=== PATIENT | male | born 1955 | race African-American/Black ===

== ENCOUNTER 2019-02-08 20:23 | Inpatient (IN) | payer OTHER ==
[~2019-02-08] VITALS: Ht 175.3 cm; Wt 77.2 kg
--- NOTE | ~2019-02-08 | ST ---
[place], [place] EXERCISE STRESS TEST REPORT NAME: BRIAN WU UNIT #: [id number] ROOM: 401 DOCTOR: TOYA KELLY MD BIRTHDATE: [birth year] DOS: 02/11/2019 LEXISCAN STRESS EKG REFERRING PHYSICIAN: Dr. Henriquez. INDICATION: Non-ST elevation myocardial infarction. DATE OF PROCEDURE: 02/11/2019. The patient underwent standard protocol Lexiscan stress EKG. The patient's baseline EKG showed normal sinus rhythm, nonspecific ST-T wave changes, and left ventricular hypertrophy. The patient's baseline heart rate 67 with a blood pressure 124/76. The patient's peak heart rate was 89 with a blood pressure 124/68. The patient had no chest pain, no new ischemic changes and no arrhythmias. SUMMARY OF FINDINGS: Unremarkable Lexiscan stress EKG. Please see separate report for perfusion scan imaging results. TOYA KELLY MD CM:STRESS:EXERCISE STRESS TEST REPORT [id number] TOYA KELLY MD
--- NOTE | ~2019-02-08 | EKG ---
[place], [place] ELECTROCARDIOGRAM REPORT NAME: BRIAN WU UNIT #: [id number] ROOM: 401 DOCTOR: JAVI DRAFT REPORT BIRTHDATE: [birth year] [facility] Test Date: 2019-02-08 Test Time: 23:27:36 Pat Name: BRIAN WU Department: Room: 401 Gender: M Custom Protection Officer: : 1955 Requested By: FAN SOTELO Order Number: [id number] Reading MD: Sindhu Good MD Measurements Intervals [place] Rate: 80 P: 55 SC: 139 QRS: -25 QRSD: 89 T: 209 QT: 383 QTc: 442 Interpretive Statements Sinus rhythm Ventricular premature complex Probable LVH with secondary repol abnrm Compared to ECG 11/18/2018 13:15:12 Ventricular premature complex(es) now present Sinus tachycardia no longer present Myocardial infarct finding no longer present Electronically Signed On 02-09-2019 12:30:54 PDT by Sindhu Good MD CM:EKGRPT:ELECTROCARDIOGRAM REPORT [id number] FAN CALDWELL DRAFT REPORT FAN SOTELO
--- NOTE | ~2019-02-08 | EKG ---
[place], [place] ELECTROCARDIOGRAM REPORT NAME: BRIAN WU UNIT #: [id number] ROOM: 401 DOCTOR: JAVI DRAFT REPORT BIRTHDATE: [birth year] [facility] Test Date: 2019-02-08 Test Time: 21:05:44 Pat Name: BRIAN WU Department: Room: 401 Gender: M Accounts Payable Manager: : 1955 Requested By: MIRNA TANG Order Number: [id number] Reading MD: Sindhu Good MD Measurements Intervals [place] Rate: 72 P: 61 [place]: 135 QRS: -40 QRSD: 103 T: 191 QT: 397 QTc: 435 Interpretive Statements Sinus rhythm Left anterior fascicular block LVH with secondary repolarization abnormality Probable anterior infarct, age indeterminate Compared to ECG 11/18/2018 13:15:12 Left anterior fascicular block now present Sinus tachycardia no longer present Myocardial infarct finding still present Electronically Signed On 02-09-2019 12:30:27 PDT by Sindhu Good MD CM:EKGRPT:ELECTROCARDIOGRAM REPORT [id number] MIRNA CALDWELL DRAFT REPORT MIRNA TANG MD
--- NOTE | ~2019-02-08 | EKG ---
[place], [place] ELECTROCARDIOGRAM REPORT NAME: BRIAN WU UNIT #: [id number] ROOM: 401 DOCTOR: JAVI DRAFT REPORT BIRTHDATE: [birth year] [facility] Test Date: 2019-02-09 Test Time: 01:56:09 Pat Name: BRIAN WU Department: Room: 401 Gender: M Skid Machine Operator: SS RESP : 1955 Requested By: FAN SOTELO Order Number: [id number] Reading MD: Sindhu Good MD Measurements Intervals [place] Rate: 76 P: 56 [place]: 137 QRS: -26 QRSD: 90 T: 209 QT: 406 QTc: 457 Interpretive Statements Sinus rhythm Ventricular premature complex Borderline left axis deviation Probable anteroseptal infarct, old Abnormal T, consider ischemia, diffuse leads Compared to ECG 11/18/2018 13:15:12 Ventricular premature complex(es) now present T-wave abnormality now present Possible ischemia now present Sinus tachycardia no longer present Left ventricular hypertrophy no longer present Early repolarization no longer present,Myocardial infarct finding still present Electronically Signed On 02-09-2019 12:31:50 PDT by Sindhu Good MD CM:EKGRPT:ELECTROCARDIOGRAM REPORT [id number] FAN CALDWELL DRAFT REPORT FAN SOTELO
[~2019-02-08 20:23] MED LIST: ALBUTEROL0.09 MG/A2 IH; DOXYCYCLINE HY100 M5 PO; IMDUR SA60 M1 PO; LASIX20 MG PO; LIPITOR80 MG PO; NKHM; PRINIVIL5 MG PO; ZITHROMAX Z PA250 MG PO
[2019-02-08 20:24] VITALS: BP 141/88
[2019-02-08 21:12] LABS: BASO % 0.3 % (0.0-1.0); EOS # 0.1 10*3/uL (0.0-0.4); EOS % 1.2 % (1.0-4.0); HEMATOCRIT 32.4 % (42.0-52.0); HEMOGLOBIN 9.8 g/dl (14.0-18.0); LYMPH # 1.7 10*3/uL (1.3-4.4); LYMPH % 26.5 % (27.0-41.0); MEAN CELL VOLUME 88.3 fl (80.0-94.0); MEAN CORPUSCULAR HGB 26.7 pg (27.0-31.0); MEAN CORPUSCULAR HGB CONC 30.2 g/dl (33.0-37.0); MEAN PLATELET VOLUME 11.5 fl (9.6-12.3); MONO # 0.7 10*3/uL (0.1-1.0); MONO % 10.3 % (3.0-9.0); NEUT # 3.9 10*3/uL (2.3-7.9); NEUT % 61.4 % (47.0-73.0); PLATELET COUNT AUTOMATED 304 10*3/uL (130-400); RED BLOOD COUNT 3.67 10*6/uL (4.50-5.90); RED CELL DISTRI WIDTH 16.7 % (0-14.5); WHITE BLOOD COUNT 6.4 10*3/uL (4.8-10.8)
[2019-02-08 21:32] VITALS: BP 148/96
--- NOTE | 2019-02-08 21:33 | NUR ---
PT DENIES ANY WOUNDS
[2019-02-08 21:58] LABS: BILIRUBIN NEGATIVE (NEGATIVE); BLOOD NEGATIVE (NEGATIVE); CLARITY CLEAR (CLEAR); COLOR YELLOW (YELLOW); GLUCOSE NEGATIVE (NEGATIVE); KETONE NEGATIVE (NEGATIVE); LEUKO ESTERASE NEGATIVE (NEGATIVE); NITRITE NEGATIVE (NEGATIVE); PH 5.5 (5.0-9.0); SPECIFIC GRAVITY 1.025 (1.005-1.030)
[2019-02-08 22:05] LABS: ALBUMIN 2.8 gm/dl (3.1-4.5); CREATININE 1.82 mg/dL (0.70-1.30); POTASSIUM 3.9 mmol/L (3.5-5.1); TOTAL PROTEIN 6.9 gm/dL (6.4-8.2)
[2019-02-08 22:06] LABS: BACTERIA 1+; HYALINE CAST 0-2; WBC 0-2 wbc/hpf (0-5)
[2019-02-08 22:11] LABS: TROPONIN I 2.28 ng/ml (<0.045)
--- NOTE | 2019-02-08 22:11 | NUR ---
CRITICAL LAB TROP 2.28, DR DAVILA NOTIFIED OF THIS.
[2019-02-08 22:45] VITALS: BP 149/99
--- NOTE | 2019-02-08 22:45 | NUR ---
A 63, admitted to , under the services of CRISSY Hubbard DO with a diagnosis of ACUTE METABOLIC ENCEPHALOPATHY. Chief complaint is NUMBNESS, TINGLING, OVERHEATED. Patient arrived via bed from ER. Monitor applied. Initial assessment completed. Vital signs taken and recorded. RCISSY HUBBARD DO notified of admission to the unit. Orders received. See assessment for past medical history, medications and allergies. Patient and/or family oriented to unit. [address] visitation policy reviewed. Clothing/patient valuable form completed. MERRITT ESCALANTE
[2019-02-08] MEDS ORDERED: CLOPIDOGREL75 MG PO (23:14)
[2019-02-08] MEDS ORDERED: LISINOPRIL2.5 MG PO (23:14)
[2019-02-08] MEDS ORDERED: OMEPRAZOLE D/R20 MG PO (23:14)
[2019-02-08] MEDS ORDERED: CARVEDILOL6.25 MG PO (23:16)
--- NOTE | 2019-02-08 23:17 | NUR ---
HOME MEDICATIONS VERIFIED
--- NOTE | 2019-02-08 23:21 | NUR ---
PATIENT IS VERY INAPPROPRIATE TOWARDS FEMALE STAFF. INSTRUCTED TO NOT GO INTO ROOM ALONE AND COME GET ME BEFORE ENTERING.
--- NOTE | 2019-02-08 23:52 | NUR ---
CONTACTED DR. SOTELO IN REGARDS TO TROPONIN OF 2.350.
[2019-02-09] VITALS: BP 149/99
--- NOTE | 2019-02-09 00:21 | NUR ---
MESSAGE LEFT WITH CARDIOLOGY REGARDING CONSULT. AWAITING CALL BACK.
--- NOTE | 2019-02-09 00:24 | NUR ---
DR. KELLY AWARE OF TROPONINS AND CONSULT COMPLETE AT THIS TIME, SEE NEW ORDERS.
[2019-02-09 00:41] LABS: URINE AMPHETAMINES < 1000 (1000ng/ml); URINE BARBITURATES < 200 (200ng/ml); URINE BENZODIAZEPINES < 200 (200ng/ml); URINE CANNABINOIDS (THC) < 50 (50ng/ml); URINE COCAINE > 300 (300ng/ml); URINE METHADONE < 300 (300ng/ml)
[2019-02-09 00:42] LABS: URINE OPIATES < 300 (300ng/ml)
[2019-02-09 00:53] LABS: URINE PHENCYCLIDINE < 25 (25ng/ml)
--- NOTE | 2019-02-09 01:24 | NUR ---
DR. SOTELO AWARE OF PATIENT REFUSING LOVENOX INJECTION.
--- NOTE | 2019-02-09 02:36 | NUR ---
MESSAGE LEFT WITH CARDIOLOGY REGARDING PATIENT REFUSING LOVENOX. AWAITING CALL BACK.
[2019-02-09 04:31] LABS: BASO % 0.2 % (0.0-1.0); EOS # 0.1 10*3/uL (0.0-0.4); EOS % 1.1 % (1.0-4.0); HEMATOCRIT 28.8 % (42.0-52.0); LYMPH # 1.7 10*3/uL (1.3-4.4); LYMPH % 27.6 % (27.0-41.0); MEAN CELL VOLUME 87.5 fl (80.0-94.0); MEAN CORPUSCULAR HGB 27.4 pg (27.0-31.0); MEAN CORPUSCULAR HGB CONC 31.3 g/dl (33.0-37.0); MEAN PLATELET VOLUME 10.6 fl (9.6-12.3); MONO # 0.8 10*3/uL (0.1-1.0); MONO % 12.3 % (3.0-9.0); NEUT # 3.6 10*3/uL (2.3-7.9); NEUT % 58.5 % (47.0-73.0); PLATELET COUNT AUTOMATED 226 10*3/uL (130-400); RED BLOOD COUNT 3.29 10*6/uL (4.50-5.90); RED CELL DISTRI WIDTH 16.7 % (0-14.5); WHITE BLOOD COUNT 6.2 10*3/uL (4.8-10.8)
[2019-02-09 04:45] LABS: ALBUMIN 2.7 gm/dl (3.1-4.5); CREATININE 1.54 mg/dL (0.70-1.30); PHOSPHOROUS 2.5 mg/dL (2.5-4.9); POTASSIUM 3.8 mmol/L (3.5-5.1); TOTAL PROTEIN 6.3 gm/dL (6.4-8.2)
[2019-02-09 04:51] LABS: THYROID STIM HORMONE (HS) 0.343 uIU/ml (0.358-4.75)
--- NOTE | 2019-02-09 04:52 | NUR ---
DR. SOTELO CONTACTED IN REGARDS TO TROPONIN ON .
[2019-02-09 07:07] LABS: VITAMIN D, 25-HYDROXY 20.9 ng/mL (30-100)
[2019-02-09 08:00] VITALS: BP 130/95
--- NOTE | 2019-02-09 10:19 | NUR ---
PT INSISTING ON EATING REG DIET. BECOMING AGITATED THAT HE CANT EAT WHEN AND WHAT HE WANTS.
--- NOTE | 2019-02-09 11:50 | NUR ---
Customs Agent in to talk to patient. Patient states lives at home with nephew. There are few steps in the home. Physician: none Pharmacy: [facility] Home health services: none Patient's level of ADLs: INDEPENDENT Patient has working utilities: all working DME: none Follow-up physician's appointment after d/c: will be made by hospitalist nurse director upon discharge Does patient want to access PORTAL?: no Discharge plan discussed with patient, patient lives at home with nephew, states he is independent in adls and ambualtion, he states he doesn't drive but friends take him to get groceries, patient stated he didn't have a doctor and would like to choose from one only in [place], patient will be going home when able and denies any home needs. HENNY YI
[2019-02-09 12:00] VITALS: BP 152/102
--- NOTE | 2019-02-09 12:06 | NUR ---
SPEECH PATHOLOGY Nursing screen completed. Medical history includes remote CVA however there are no reports of acute communication or swallowing problems. Reports indicate patient can be noncompliant and inappropriate. Speech services are not recommended at this time. THERESA GOMEZ MSCCC-DETHISTLER OPERATOR
[2019-02-09 16:00] VITALS: BP 131/88
--- NOTE | 2019-02-09 16:27 | NUR ---
Nursing screen received and chart reviewed. Patient admited with NSTEMI and recent CVA. If patient should have a decline in ADLS and safety for return home then refer to OT . Thank you Sammi Early OTR/L
[2019-02-09 20:00] VITALS: BP 137/66; BP 153/65
--- NOTE | 2019-02-09 23:26 | NUR ---
APTT 41.8. HEPARIN DRIP INCREASED TO 16U/KG/HR OR 12.3CC/HR. NEW APTT TO BE DRAWN AT 0530.
[2019-02-10] VITALS: BP 134/95
[2019-02-10 08:00] VITALS: BP 108/80
--- NOTE | 2019-02-10 08:17 | NUR ---
Awake and alert. No c/o this AM. Breakfast ordered.
[2019-02-10 08:20] LABS: BASO % 0.5 % (0.0-1.0); EOS # 0.2 10*3/uL (0.0-0.4); EOS % 2.5 % (1.0-4.0); HEMATOCRIT 32.5 % (42.0-52.0); LYMPH # 2.1 10*3/uL (1.3-4.4); LYMPH % 31.4 % (27.0-41.0); MEAN CELL VOLUME 88.1 fl (80.0-94.0); MEAN CORPUSCULAR HGB 27.1 pg (27.0-31.0); MEAN CORPUSCULAR HGB CONC 30.8 g/dl (33.0-37.0); MEAN PLATELET VOLUME 11.6 fl (9.6-12.3); MONO # 0.7 10*3/uL (0.1-1.0); MONO % 11.2 % (3.0-9.0); NEUT # 3.5 10*3/uL (2.3-7.9); NEUT % 54.1 % (47.0-73.0); PLATELET COUNT AUTOMATED 258 10*3/uL (130-400); RED BLOOD COUNT 3.69 10*6/uL (4.50-5.90); RED CELL DISTRI WIDTH 16.6 % (0-14.5); WHITE BLOOD COUNT 6.5 10*3/uL (4.8-10.8)
[2019-02-10 08:36] LABS: ALBUMIN 2.8 gm/dl (3.1-4.5); ALKALINE PHOSPHATASE 87 U/L (45-117); BUN 20 mg/dl (7-24); CHLORIDE 111 mmol/L (98-107); CREATININE 1.16 mg/dL (0.70-1.30); POTASSIUM 3.8 mmol/L (3.5-5.1); SGOT/AST 24 IU/L (3-35); SGPT/ALT 24 U/L (12-78); SODIUM 143 mmol/L (136-145); TOTAL PROTEIN 6.6 gm/dL (6.4-8.2)
[2019-02-10 12:00] VITALS: BP 115/62
[2019-02-10 16:00] VITALS: BP 121/84
--- NOTE | 2019-02-10 16:34 | NUR ---
DR. FRANCOIS NOTIFIED OF PT 7 BEAT RUN OF VTACH. PER ANIMAL WARDEN THIS IS NOT THE FIRST TIME TODAY. PT ASYMPTOMATIC, DENIES ANY CHEST DISCOMOFRT. AWAKE & ALERT. NO NEW ORDERS RECIEVED. WILL CONTINUE TO MONITOR PT.
[2019-02-10 20:00] VITALS: BP 114/69
--- NOTE | 2019-02-10 23:00 | NUR ---
24 HR chart check completed.
[2019-02-11] VITALS: BP 119/68
[2019-02-11 06:33] LABS: BASO % 0.5 % (0.0-1.0); EOS # 0.2 10*3/uL (0.0-0.4); EOS % 2.5 % (1.0-4.0); HEMOGLOBIN 9.7 g/dl (14.0-18.0); LYMPH # 1.8 10*3/uL (1.3-4.4); LYMPH % 30.5 % (27.0-41.0); MEAN CELL VOLUME 86.5 fl (80.0-94.0); MEAN CORPUSCULAR HGB 26.2 pg (27.0-31.0); MEAN CORPUSCULAR HGB CONC 30.3 g/dl (33.0-37.0); MEAN PLATELET VOLUME 11.3 fl (9.6-12.3); MONO # 0.6 10*3/uL (0.1-1.0); MONO % 10.6 % (3.0-9.0); NEUT # 3.4 10*3/uL (2.3-7.9); NEUT % 55.7 % (47.0-73.0); PLATELET COUNT AUTOMATED 266 10*3/uL (130-400); RED CELL DISTRI WIDTH 16.3 % (0-14.5)
[2019-02-11 06:58] LABS: BUN 17 mg/dl (7-24); CHLORIDE 109 mmol/L (98-107); CREATININE 1.33 mg/dL (0.70-1.30); POTASSIUM 4.1 mmol/L (3.5-5.1); SODIUM 140 mmol/L (136-145)
[2019-02-11 08:00] VITALS: BP 138/84
--- NOTE | 2019-02-11 09:00 | NUR ---
case management visits with patient, patient will be going home when able and denies any home needs
--- NOTE | 2019-02-11 11:30 | NUR ---
PT TAKEN TO STRESS TEST AT THIS TIME.
[2019-02-11 12:00] VITALS: BP 123/81
--- NOTE | 2019-02-11 12:30 | NUR ---
INFORMED CONSENT OBTAINED FOR LEXISCAN NUCLEAR STRESS TEST WITH DR. KELLY. RESTING EKG NSR WITH A RESTING HR OF 67 WITH BP OF 124/76. HAS INVERTED T WAVE IN LEADS II,III,AVF AND V5-V6. LUNGS CLEAR WITH SPO2 OF 95% ON ROOM AIR. PT COMPLETED A 1:00 LEXISCAN PROTOCOL RECEIVING LEXISCAN 0.4 MG IV OVER 10 SECONDS. HAD NO CHEST PAIN OR ANY NEW EKG CHANGES. HAD C/O DIZZINESS AND NAUSEA THAT WAS RELIEVED IN RECOVERY. HAD A PEAK HR OF 89 WITH BP OF 124/68. LAST RECOVERY HR OF 89 WITH BP OF 122/68. AWAITING SCANNING IN STABLE CONDITION.
--- NOTE | 2019-02-11 13:13 | NUR ---
PHYSICAL THERAPY Nursing screen received. Chart review complete. Recommend normal daily mobility with nursing prn. If difficulties with mobilty arise, please order PT when medically appropriate. Thank you. Brooke Harrell,PT
[2019-02-11 16:00] VITALS: BP 124/77
--- NOTE | 2019-02-11 19:20 | NUR ---
ARRIVED ON SHIFT, INTRODUCED TO PATIENT, BEDSIDE REPORT RECIEVED. WHITE BOARD UPDATED, NO NEEDS VOICED AT THIS TIME.
--- NOTE | 2019-02-11 19:43 | NUR ---
24 HR chart check completed.
[2019-02-11 20:00] VITALS: BP 118/76; BP 124/74
[2019-02-12] VITALS: BP 111/72
--- NOTE | 2019-02-12 00:39 | NUR ---
Patient sleeping. Respirations relaxed and easy. Siderails up X2. [place] on. HANNA OWODSON
[2019-02-12 06:05] LABS: BASO % 0.4 % (0.0-1.0); EOS # 0.2 10*3/uL (0.0-0.4); EOS % 2.7 % (1.0-4.0); HEMATOCRIT 31.7 % (42.0-52.0); HEMOGLOBIN 9.9 g/dl (14.0-18.0); LYMPH # 1.5 10*3/uL (1.3-4.4); LYMPH % 27.4 % (27.0-41.0); MEAN CORPUSCULAR HGB 26.5 pg (27.0-31.0); MEAN CORPUSCULAR HGB CONC 31.2 g/dl (33.0-37.0); MEAN PLATELET VOLUME 11.3 fl (9.6-12.3); MONO # 0.7 10*3/uL (0.1-1.0); MONO % 11.8 % (3.0-9.0); NEUT # 3.2 10*3/uL (2.3-7.9); NEUT % 57.5 % (47.0-73.0); PLATELET COUNT AUTOMATED 260 10*3/uL (130-400); RED BLOOD COUNT 3.73 10*6/uL (4.50-5.90); RED CELL DISTRI WIDTH 16.1 % (0-14.5); WHITE BLOOD COUNT 5.5 10*3/uL (4.8-10.8)
[2019-02-12 06:27] LABS: BUN 15 mg/dl (7-24); CHLORIDE 108 mmol/L (98-107); CREATININE 1.24 mg/dL (0.70-1.30); POTASSIUM 4.2 mmol/L (3.5-5.1); SODIUM 140 mmol/L (136-145)
[2019-02-12 08:00] VITALS: BP 130/80; BP 132/84
[2019-02-12 12:00] VITALS: BP 110/64
--- NOTE | 2019-02-12 12:06 | NUR ---
CMR CALLED SAID PATIENT HAD 18 BEATS OF VTACH. CALLED DR. KELLY. RECEIVED NEW ORDERS AND HE WILL BE IN TO SEE PATIENT.
[2019-02-12 16:00] VITALS: BP 109/58
--- NOTE | 2019-02-12 16:00 | NUR ---
Patient resting quietly with no c/o discomfort. Respirations easy and regular. Vital signs stable. No overt distress. CRESENCIO ESPINOSA
--- NOTE | 2019-02-12 19:10 | NUR ---
ARRIVED ON SHIFT, INTROCED TO PATIENT,REPORT RECIEVED, WHITE BOARD UPDATED. NO NEEDS VOICED AT THIS TIME.
--- NOTE | 2019-02-12 19:45 | NUR ---
24 HR chart check completed.
[2019-02-12 20:00] VITALS: BP 112/58; BP 90/58
[2019-02-13] VITALS: BP 105/68
--- NOTE | 2019-02-13 00:49 | NUR ---
Patient sleeping. Respirations relaxed and easy. Siderails up X 2. [place] on. HANNA WOODSON
--- NOTE | 2019-02-13 01:37 | NUR ---
rehab nursing tech called stating patient had 8 beat run of v-tach. Upon enterting patient room, he was asleep. Easily aroused. Denies any discomfort or distress. Skin warm and dry. BP 111/66 HR dropped into highs thirties then maintained in the 50's. Patient's nurse will be notified.
--- NOTE | 2019-02-13 01:48 | NUR ---
CALL PLACED TO DR. GARLAND, ADVISED OF 8 BEAT RUN OF V-TACH, NO NEW ORDERS AT THIS TIME.
--- NOTE | 2019-02-13 05:30 | NUR ---
CALL PLACED TO DR. LLOYD ADVISED THAT ONLY 1/2 OF MAGNISIUM COULD BE GIVEN, HIS IV CAME OUT, 3 ATTEMPTS MADE TO REPLACE IV WITHOUT SUCCESS.
--- NOTE | 2019-02-13 07:31 | NUR ---
CALL PLACED TO HOSPITALIST, ADVISED THAT 5 ATTEMPTS MADE TO START IV. ADVISED TO HAVE ULTRASOUND TRTAINED NURSE TO PLACE NEW IV. CALL PLACED TO ADE, TO PLACE IV.
[2019-02-13 08:00] VITALS: BP 118/82
--- NOTE | 2019-02-13 09:56 | NUR ---
IN TO SEE PATIENT.
[2019-02-13] MEDS ORDERED: ALDACTONE25 MG PO (11:05)
[2019-02-13] MEDS ORDERED: CARVEDILOL25 MG PO (11:05)
[2019-02-13] MEDS ORDERED: LISINOPRIL5 MG PO (11:05)
[2019-02-13 12:00] VITALS: BP 98/62
--- NOTE | 2019-02-13 13:00 | NUR ---
PATIENT RESTING QUIETLY IN BED. DENIES ANY SOB. DENIES ANY CHEST PAIN/DISCOMFORT. WILL CONTINUE TO MONITOR. CALL LIGHT WITHIN REACH.
[2019-02-13 16:00] VITALS: BP 98/50
--- NOTE | 2019-02-13 17:06 | NUR ---
PATIENT CONTINUES TO REST QUIETLY. NO DISTRESS NOTED. VSS. NSR PER CM. WILL CONTINUE TO MONITOR. CALL LIGHT WITHIN REACH.
--- NOTE | 2019-02-13 17:50 | NUR ---
NOTIFIED REGARDING DISCHARGE ORDER. AWAITING PHYSICIAN ORDERS.
--- NOTE | 2019-02-13 19:07 | NUR ---
24 HOUR CHART CHECK COMPLETE.
[2019-02-13 20:00] VITALS: BP 104/72; BP 122/70
--- NOTE | 2019-02-13 20:00 | NUR ---
Patient resting quietly with no c/o discomfort. Respirations easy and regular. Vital signs stable. No overt distress. VARGHESE ESPINOSA
--- NOTE | 2019-02-13 21:54 | NUR ---
SPOKE WITH DR. LLOYD REGARDING PTS HEART MEDICATIONS. AT THIS TIME THE PTS BLOOD PRESSURE IS 110/60 WITH A HR BOUNCING BETWEEN HIGH 60'S-LOW 70'S. HE TOLD ME TO HOLD THE PTS DOSE OF LISINOPRIL, BUT TO GIVE THE ORDERED DOSE OF CARVEDILOL.
[2019-02-14] VITALS: BP 83/55
--- NOTE | 2019-02-14 | NUR ---
Patient sleeping. Respirations relaxed and easy. Siderails up X2. [place] on. VARGHESE ESPINOSA
--- NOTE | 2019-02-14 | NUR ---
REMOVED ALL FOOD AND DRINKS FROM THE PTS ROOM AT THIS TIME. PT IS TO BE NPO FROM THIS POINT ON TO PREPARE FOR HEART CATH IN THE AM AT [facility].
--- NOTE | 2019-02-14 00:10 | NUR ---
PTS BLOOD PRESSURE 83/55 WITH A HR OF 65 AT THIS TIME. WILL CONTINUE TO MONITOR THE PT. NO COMPLAINTS OF LIGHT HEADEDNESS OR DIZZINESS WERE MENTIONED BY THE PT.
--- NOTE | 2019-02-14 06:00 | NUR ---
Discharge instructions reviewed with patient. Patient receptive and verbalizes understanding. Pt picked up by Nick at 0600, report given to the two plastic cablemaking machine operator. 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 Stable upon discharge, no complaints. Discharge packet and pt's belongings sent with him. VARGHESE ESPINOSA
--- NOTE | 2019-02-14 06:00 | NUR ---
INDY PICKING UP PT TO TAKE HIM TO [facility]' BEAUTY SALES CONSULTANT. REPORT GIVEN. PTS BELONGINGS SENT WITH HIM. PT STABLE ON DISCHARGE.
--- NOTE | 2019-02-14 06:20 | NUR ---
REPORT GIVEN TO NURSE AT [facility]' WEB CONTENT EXECUTIVE. PTS REPORT OF CONSULT FAXED OVER TO THEM.
== END 2019-02-14 05:58 | disposition short-term general hospital (02) | DRG 280 ==
LOC: ED 20:23 → 4E 22:22 → EDHOLD 22:22 → 4E 22:29
PROVIDERS: Emergency Medicine Emergency Medical Services; Family Medicine; Internal Medicine; Student in an Organized Health Care Education/Training Program; ADMIT Internal Medicine
PROC: 4A02XM4 Measurement of Cardiac Total Activity, External Approach (ICD-10-PCS; principal; 2019-02-11)
PROC: 3E073KZ Introduction of Other Diagnostic Substance into Coronary Artery, Percutaneous Approach (ICD-10-PCS; 2019-02-11)
DX: I21.4 Non-ST elevation (NSTEMI) myocardial infarction (principal); G93.41 Metabolic encephalopathy; N17.0 Acute kidney failure with tubular necrosis; N17.1 Acute kidney failure with acute cortical necrosis; E44.0 Moderate protein-calorie malnutrition; I13.0 Hypertensive heart and chronic kidney disease with heart failure and stage 1 through stage 4 chronic kidney disease, or unspecified chronic kidney disease; I50.32 Chronic diastolic (congestive) heart failure; I47.2 Ventricular tachycardia; I42.9 Cardiomyopathy, unspecified; F14.10 Cocaine abuse, uncomplicated; D64.9 Anemia, unspecified; E87.8 Other disorders of electrolyte and fluid balance, not elsewhere classified; N18.3 Chronic kidney disease, stage 3 (moderate); R82.71 Bacteriuria; E86.0 Dehydration; R00.1 Bradycardia, unspecified; E66.3 Overweight; Z86.73 Personal history of transient ischemic attack (TIA), and cerebral infarction without residual deficits; Z87.891 Personal history of nicotine dependence; I25.2 Old myocardial infarction; Z79.899 Other long term (current) drug therapy; Z79.02 Long term (current) use of antithrombotics/antiplatelets; Z68.25 Body mass index [BMI] 25.0-25.9, adult

== ENCOUNTER 2019-02-26 13:56 | Inpatient (IN) | payer OTHER ==
[~2019-02-26] VITALS: Ht 170.1 cm; Wt 71.8 kg
--- NOTE | ~2019-02-26 | EKG ---
[place], [place] ELECTROCARDIOGRAM REPORT NAME: BRIAN WU UNIT #: [id number] ROOM: 407 DOCTOR: JAVI DRAFT REPORT BIRTHDATE: [birth year] [facility] Test Date: 2019-02-26 Test Time: 16:36:56 Pat Name: BRIAN WU Department: Room: 407 Gender: M Filter Press Supervisor: Sienna Kuo : 1955 Requested By: MARY ROLDAN Order Number: [id number] Reading MD: Uche Stout Measurements Intervals [place] Rate: 60 P: 55 SD: 146 QRS: -12 QRSD: 91 T: 241 QT: 414 QTc: 414 Interpretive Statements Sinus rhythm Probable left atrial enlargement Anterolateral/Inferior ST/T changes - consider ischemia Borderline ST elevation, septal leads Compared to ECG 02/09/2019 01:56:09 ST (T wave) deviation now present Ventricular premature complex(es) no longer present Myocardial infarct finding no longer present T-wave abnormality still present Possible ischemia still present Electronically Signed On 02-28-2019 11:48:28 PDT by Uche Stout CM:EKGRPT:ELECTROCARDIOGRAM REPORT [id number] MARY CALDWELL DRAFT REPORT MARY ROLDAN MD
--- NOTE | ~2019-02-26 | EKG ---
[place], [place] ELECTROCARDIOGRAM REPORT NAME: BRIAN WU UNIT #: [id number] ROOM: 407 DOCTOR: JAVI DRAFT REPORT BIRTHDATE: [birth year] [facility] Test Date: 2019-02-26 Test Time: 20:10:52 Pat Name: BRIAN WU Department: Room: 407 Gender: M Butcher Fish: Sienna Kuo : 1955 Requested By: MARY ROLDAN Order Number: [id number] Reading MD: Uche Stout Measurements Intervals [place] Rate: 75 P: 54 [place]: 158 QRS: 11 QRSD: 92 T: 231 QT: 370 QTc: 414 Interpretive Statements Sinus rhythm,Atrial premature complex,Probable left atrial enlargement Anteroseptal infarct, old Repol abnrm suggests ischemia, anterolateral Baseline wander in lead(s) V4 Compared to ECG 02/09/2019 01:56:09 Atrial premature complex(es) now present Early repolarization now present Ventricular premature complex(es) no longer present T-wave abnormality no longer present Myocardial infarct finding still present Possible ischemia still present Electronically Signed On 02-28-2019 11:48:57 PDT by Uche Stout CM:EKGRPT:ELECTROCARDIOGRAM REPORT [id number] 1148 MARY CALDWELL DRAFT REPORT MARY ROLDAN MD
--- NOTE | ~2019-02-26 | EKG ---
[place], [place] ELECTROCARDIOGRAM REPORT NAME: BRIAN WU UNIT #: [id number] ROOM: 407 DOCTOR: JAVI DRAFT REPORT BIRTHDATE: [birth year] [facility] Test Date: 2019-02-26 Test Time: 13:59:24 Pat Name: BRIAN WU Department: Room: 407 Gender: M Clinical Pathologist: : 1955 Requested By: MARY ROLDAN Order Number: [id number] Reading MD: Uche Stout Measurements Intervals [place] Rate: 69 P: 51 FL: 152 QRS: -8 QRSD: 103 T: 233 QT: 387 QTc: 415 Interpretive Statements Sinus rhythm Probable left atrial enlargement Anerolateral, inferior ST/T changes Borderline ST elevation, septal leads Compared to ECG 02/09/2019 01:56:09 Early repolarization now present ST (T wave) deviation now present Ventricular premature complex(es) no longer present Myocardial infarct finding no longer present T-wave abnormality no longer present Possible ischemia still present Electronically Signed On 02-28-2019 11:44:43 PDT by Uche Stout CM:EKGRPT:ELECTROCARDIOGRAM REPORT [id number] MARY CALDWELL DRAFT REPORT MARY ROLDAN MD
[~2019-02-26 13:56] MED LIST changes: +ALDACTONE25 MG PO; +CARVEDILOL25 MG PO; +CARVEDILOL6.25 MG PO; +CLOPIDOGREL75 MG PO; +LISINOPRIL2.5 MG PO; +LISINOPRIL5 MG PO; +OMEPRAZOLE D/R20 MG PO
[2019-02-26 14:00] VITALS: BP 124/82
[2019-02-26 14:16] LABS: BASO % 0.4 % (0.0-1.0); EOS # 0.1 10*3/uL (0.0-0.4); EOS % 0.7 % (1.0-4.0); HEMATOCRIT 37.8 % (42.0-52.0); HEMOGLOBIN 11.9 g/dl (14.0-18.0); LYMPH # 1.1 10*3/uL (1.3-4.4); LYMPH % 16.5 % (27.0-41.0); MEAN CELL VOLUME 84.6 fl (80.0-94.0); MEAN CORPUSCULAR HGB 26.6 pg (27.0-31.0); MEAN CORPUSCULAR HGB CONC 31.5 g/dl (33.0-37.0); MONO # 0.6 10*3/uL (0.1-1.0); MONO % 9.3 % (3.0-9.0); NEUT # 4.9 10*3/uL (2.3-7.9); PLATELET COUNT AUTOMATED 249 10*3/uL (130-400); RED BLOOD COUNT 4.47 10*6/uL (4.50-5.90); WHITE BLOOD COUNT 6.7 10*3/uL (4.8-10.8)
[2019-02-26 14:31] VITALS: BP 122/75
[2019-02-26 14:33] LABS: ALBUMIN 3.6 gm/dl (3.1-4.5); ALKALINE PHOSPHATASE 110 U/L (45-117); BUN 27 mg/dl (7-24); CHLORIDE 105 mmol/L (98-107); CREATININE 1.69 mg/dL (0.70-1.30); POTASSIUM 4.4 mmol/L (3.5-5.1); SGOT/AST 11 IU/L (3-35); SGPT/ALT 13 U/L (12-78); SODIUM 136 mmol/L (136-145)
[2019-02-26 14:34] LABS: TROPONIN I < 0.015 ng/ml (<0.045)
[2019-02-26 14:41] LABS: ACT PARTIAL THROMBO TIME 26.7 SECONDS (20.0-32.1)
[2019-02-26 14:48] VITALS: BP 95/68
[2019-02-26] MEDS ORDERED: LISINOPRIL2.5 MG PO (18:35)
[2019-02-26] MEDS ORDERED: CARVEDILOL25 MG PO (18:39)
[2019-02-26 18:56] VITALS: BP 143/99
[2019-02-26 20:00] VITALS: BP 151/54
[2019-02-27] VITALS: BP 118/78
[2019-02-27 06:31] LABS: BASO % 0.3 % (0.0-1.0); EOS # 0.1 10*3/uL (0.0-0.4); EOS % 1.3 % (1.0-4.0); HEMATOCRIT 34.3 % (42.0-52.0); HEMOGLOBIN 10.6 g/dl (14.0-18.0); LYMPH # 1.6 10*3/uL (1.3-4.4); LYMPH % 22.6 % (27.0-41.0); MEAN CELL VOLUME 85.1 fl (80.0-94.0); MEAN CORPUSCULAR HGB 26.3 pg (27.0-31.0); MEAN CORPUSCULAR HGB CONC 30.9 g/dl (33.0-37.0); MEAN PLATELET VOLUME 11.2 fl (9.6-12.3); MONO # 0.9 10*3/uL (0.1-1.0); MONO % 12.8 % (3.0-9.0); NEUT # 4.4 10*3/uL (2.3-7.9); NEUT % 62.9 % (47.0-73.0); PLATELET COUNT AUTOMATED 226 10*3/uL (130-400); RED BLOOD COUNT 4.03 10*6/uL (4.50-5.90); RED CELL DISTRI WIDTH 14.9 % (0-14.5)
[2019-02-27 07:02] LABS: ALBUMIN 3.1 gm/dl (3.1-4.5); ALKALINE PHOSPHATASE 95 U/L (45-117); BUN 25 mg/dl (7-24); CHLORIDE 106 mmol/L (98-107); CHOLESTEROL 197 mg/dL (<200); CREATININE 1.32 mg/dL (0.70-1.30); FREE T4 1.28 ng/dl (0.76-1.46); HDL CHOLESTEROL 50 mg/dl (40-60); LDL CHOLESTEROL 135 mg/dL (9-159); POTASSIUM 3.9 mmol/L (3.5-5.1); SGOT/AST 11 IU/L (3-35); SGPT/ALT 14 U/L (12-78); SODIUM 139 mmol/L (136-145); TOTAL PROTEIN 7.9 gm/dL (6.4-8.2); TRIGLYCERIDES 61 mg/dl (<150); VLDL CHOLESTEROL 12 mg/dL (6-40)
[2019-02-27 07:05] LABS: ACT PARTIAL THROMBO TIME 42.8 SECONDS (20.0-32.1)
[2019-02-27 07:07] LABS: THYROID STIM HORMONE (HS) 0.835 uIU/ml (0.358-4.75)
[2019-02-27 07:53] LABS: VITAMIN D, 25-HYDROXY 24.1 ng/mL (30-100)
[2019-02-27 08:00] VITALS: BP 90/48
[2019-02-27 12:00] VITALS: BP 106/71
== END 2019-02-27 15:08 | disposition home or self-care (01) | DRG 205 ==
LOC: ED 13:56 → EDHOLD 15:08 → 4E 17:29
PROVIDERS: Emergency Medicine; Internal Medicine; ADMIT Family Medicine
DX: M94.0 Chondrocostal junction syndrome [Tietze] (principal); N17.0 Acute kidney failure with tubular necrosis; I50.42 Chronic combined systolic (congestive) and diastolic (congestive) heart failure; I13.0 Hypertensive heart and chronic kidney disease with heart failure and stage 1 through stage 4 chronic kidney disease, or unspecified chronic kidney disease; I42.9 Cardiomyopathy, unspecified; S22.42XA Multiple fractures of ribs, left side, initial encounter for closed fracture; E78.5 Hyperlipidemia, unspecified; R00.0 Tachycardia, unspecified; R73.9 Hyperglycemia, unspecified; D64.9 Anemia, unspecified; N18.3 Chronic kidney disease, stage 3 (moderate); I25.119 Atherosclerotic heart disease of native coronary artery with unspecified angina pectoris; X58.XXXA Exposure to other specified factors, initial encounter; Y93.89 Activity, other specified; Y92.89 Other specified places as the place of occurrence of the external cause; Y99.8 Other external cause status; Z95.5 Presence of coronary angioplasty implant and graft; Z87.891 Personal history of nicotine dependence; I25.2 Old myocardial infarction; Z86.73 Personal history of transient ischemic attack (TIA), and cerebral infarction without residual deficits; Z82.49 Family history of ischemic heart disease and other diseases of the circulatory system; Z79.899 Other long term (current) drug therapy; Z79.02 Long term (current) use of antithrombotics/antiplatelets

== ENCOUNTER → 2019-05-03 | Outpatient (CLI) | payer OTHER | END | disposition home or self-care (01) | LOC: CARD 11:27 | DX: I25.5 Ischemic cardiomyopathy (principal) ==

== ENCOUNTER 2019-05-23 12:35 | Emergency (ER) | payer MEDICAID ==
[~2019-05-23] VITALS: Ht 175.2 cm; Wt 74.8 kg
== END 2019-05-23 16:07 | disposition home or self-care (01) ==
LOC: ED 12:35
DX: R20.0 Anesthesia of skin (principal); H53.9 Unspecified visual disturbance; I25.10 Atherosclerotic heart disease of native coronary artery without angina pectoris; I13.0 Hypertensive heart and chronic kidney disease with heart failure and stage 1 through stage 4 chronic kidney disease, or unspecified chronic kidney disease; I50.9 Heart failure, unspecified; N18.9 Chronic kidney disease, unspecified; I25.2 Old myocardial infarction; Z86.73 Personal history of transient ischemic attack (TIA), and cerebral infarction without residual deficits; Z79.899 Other long term (current) drug therapy

== ENCOUNTER 2019-07-01 07:56 | Emergency (ER) | payer MEDICAID ==
[2019-07-01 08:34] LABS: BASO % 0.1 % (0.0-1.0); EOS % 0.1 % (1.0-4.0); HEMATOCRIT 39.7 % (42.0-52.0); LYMPH # 0.8 10*3/uL (1.3-4.4); LYMPH % 10.2 % (27.0-41.0); MEAN CELL VOLUME 83.2 fl (80.0-94.0); MEAN CORPUSCULAR HGB 25.2 pg (27.0-31.0); MEAN CORPUSCULAR HGB CONC 30.2 g/dl (33.0-37.0); MEAN PLATELET VOLUME 10.2 fl (9.6-12.3); MONO # 0.2 10*3/uL (0.1-1.0); MONO % 3.1 % (3.0-9.0); NEUT # 6.8 10*3/uL (2.3-7.9); NEUT % 86.2 % (47.0-73.0); PLATELET COUNT AUTOMATED 228 10*3/uL (130-400); RED BLOOD COUNT 4.77 10*6/uL (4.50-5.90); RED CELL DISTRI WIDTH 17.4 % (0-14.5); WHITE BLOOD COUNT 7.9 10*3/uL (4.8-10.8)
[2019-07-01 08:47] LABS: ACT PARTIAL THROMBO TIME 23.1 SECONDS (20.0-32.1); INTERNATIONAL NORM RATIO 0.9 (2.0-3.5)
[2019-07-01 08:48] LABS: BILIRUBIN NEGATIVE (NEGATIVE); BLOOD TRACE-INTACT (NEGATIVE); CLARITY CLEAR (CLEAR); COLOR YELLOW (YELLOW); GLUCOSE NEGATIVE (NEGATIVE); KETONE NEGATIVE (NEGATIVE); LEUKO ESTERASE NEGATIVE (NEGATIVE); NITRITE NEGATIVE (NEGATIVE); UROBILINOGEN 0.2 E.U./dl (0.2-1.0)
[2019-07-01 08:53] LABS: ALBUMIN 3.6 gm/dl (3.1-4.5); ALKALINE PHOSPHATASE 107 U/L (45-117); BUN 26 mg/dl (7-24); CHLORIDE 104 mmol/L (98-107); LIPASE 61 U/L (73-393); POTASSIUM 4.2 mmol/L (3.5-5.1); SGOT/AST 12 IU/L (3-35); SGPT/ALT 17 U/L (12-78); SODIUM 137 mmol/L (136-145); TOTAL PROTEIN 8.3 gm/dL (6.4-8.2)
[2019-07-01 08:54] LABS: ETHYL ALCOHOL < 3.0 mg/dl (<3); TROPONIN I 0.067 ng/ml (<0.045)
[2019-07-01 08:58] LABS: URINE AMPHETAMINES < 1000 (1000ng/ml); URINE BARBITURATES < 200 (200ng/ml); URINE BENZODIAZEPINES < 200 (200ng/ml); URINE CANNABINOIDS (THC) < 50 (50ng/ml); URINE COCAINE > 300 (300ng/ml); URINE OPIATES < 300 (300ng/ml)
[2019-07-01 09:01] LABS: URINE METHADONE < 300 (300ng/ml)
[2019-07-01 09:03] LABS: EPITHELIAL CELLS 0-2; RBC 0-2 rbc/hpf (0-2); URINE PHENCYCLIDINE < 25 (25ng/ml)
[2019-07-01 09:09] VITALS: BP 180/119
== END 2019-07-01 11:20 | disposition short-term general hospital (02) ==
LOC: ED 07:56
PROVIDERS: Emergency Medicine
DX: G40.901 Epilepsy, unspecified, not intractable, with status epilepticus (principal); I25.10 Atherosclerotic heart disease of native coronary artery without angina pectoris; I13.0 Hypertensive heart and chronic kidney disease with heart failure and stage 1 through stage 4 chronic kidney disease, or unspecified chronic kidney disease; N18.9 Chronic kidney disease, unspecified; I50.9 Heart failure, unspecified; I25.2 Old myocardial infarction; Z79.899 Other long term (current) drug therapy; Z87.891 Personal history of nicotine dependence

== ENCOUNTER → 2019-08-30 | Outpatient (CLI) | payer MEDICAID | END | disposition home or self-care (01) | LOC: CT 08-16 11:00 | DX: R91.1 Solitary pulmonary nodule (principal) ==

== ENCOUNTER → 2019-12-13 | Outpatient (CLI) | payer MEDICAID ==
[~2019-12-13] MED LIST changes: +ASPIRIN FOR CHI81 MG PO; +LEVETIRACETAM1000 M1 PO; +MGO400 MG PO; +MULTI-VITAMIN1 EACH PO; +NATURE'S BLEND F1 MG PO; +TRILEPTAL300 MG PO; +VIT B1 PO
--- NOTE | 2019-12-13 07:10 | NUR ---
INFORMED CONSENT SIGNED FOR LEXISCAN STRESS TEST WITH DR. QUINTANILLA. RESTING EKG NSR, HR 60, BP 126/80. PULSE OX 100% AND LUNGS CLEAR BILATERALLY. COMPLETED ONE MINUTE OF LEXISCAN PROTOCOL RECEIVING LEXISCAN 0.4MG OVER 10 SECONDS. NO ARRHYTHMIAS NOTED AND NO NEW ST CHANGES. PT HAD NO C/O. LAST RECOVERY HR 83, BP 104/80. WAITING NUCLEAR SCANNING IN STABLE CONDITION.
== END | disposition home or self-care (01) ==
LOC: CARD 12-06 07:00
DX: I51.7 Cardiomegaly (principal); R94.39 Abnormal result of other cardiovascular function study; I25.10 Atherosclerotic heart disease of native coronary artery without angina pectoris; I25.2 Old myocardial infarction; R73.03 Prediabetes; R53.81 Other malaise

== ENCOUNTER 2019-12-23 10:11 | Observation (INO) | payer MEDICAID ==
[~2019-12-23] VITALS: Ht 172.7 cm; Wt 74.1 kg
[~2019-12-23 10:11] MED LIST changes: -LEVETIRACETAM1000 M1 PO
[2019-12-23 10:12] VITALS: BP 150/64
[2019-12-23 10:34] LABS: BILIRUBIN NEGATIVE (NEGATIVE); BLOOD NEGATIVE (NEGATIVE); CLARITY SL CLOUDY (CLEAR); COLOR YELLOW (YELLOW); GLUCOSE NEGATIVE (NEGATIVE); KETONE NEGATIVE (NEGATIVE); LEUKO ESTERASE NEGATIVE (NEGATIVE); NITRITE NEGATIVE (NEGATIVE); UROBILINOGEN 0.2 E.U./dl (0.2-1.0)
[2019-12-23 10:42] LABS: WBC 0-2 wbc/hpf (0-5)
[2019-12-23 10:43] LABS: BACTERIA 2+; MUCOUS 1+
[2019-12-23 11:09] LABS: BASO % 0.5 % (0.0-1.0); EOS # 0.1 10*3/uL (0.0-0.4); EOS % 1.2 % (1.0-4.0); HEMATOCRIT 40.2 % (42.0-52.0); LYMPH # 1.4 10*3/uL (1.3-4.4); LYMPH % 24.1 % (27.0-41.0); MEAN CELL VOLUME 86.3 fl (80.0-94.0); MEAN CORPUSCULAR HGB 26.8 pg (27.0-31.0); MEAN CORPUSCULAR HGB CONC 31.1 g/dl (33.0-37.0); MONO # 0.4 10*3/uL (0.1-1.0); MONO % 7.8 % (3.0-9.0); NEUT # 3.7 10*3/uL (2.3-7.9); NEUT % 66.2 % (47.0-73.0); PLATELET COUNT AUTOMATED 198 10*3/uL (130-400); RED BLOOD COUNT 4.66 10*6/uL (4.50-5.90); RED CELL DISTRI WIDTH 14.9 % (0-14.5); WHITE BLOOD COUNT 5.6 10*3/uL (4.8-10.8)
[2019-12-23 11:18] LABS: ALBUMIN 3.3 gm/dl (3.1-4.5); ALKALINE PHOSPHATASE 120 U/L (45-117); BUN 14 mg/dl (7-24); CHLORIDE 107 mmol/L (98-107); CREATININE 0.99 mg/dL (0.70-1.30); POTASSIUM 3.9 mmol/L (3.5-5.1); SGOT/AST 15 IU/L (3-35); SGPT/ALT 33 U/L (12-78); SODIUM 140 mmol/L (136-145); TOTAL PROTEIN 7.3 gm/dL (6.4-8.2)
[2019-12-23 11:21] LABS: TROPONIN I < 0.015 ng/ml (<0.045)
[2019-12-23 11:25] LABS: THYROID STIM HORMONE (HS) 0.928 uIU/ml (0.358-4.75)
[2019-12-23 12:17] VITALS: BP 146/64
--- NOTE | 2019-12-23 13:30 | NUR ---
A 64, admitted to 4E, under the services of ANGELES Booker DO with a diagnosis of LEFT SIDED WEAKNESS. Chief complaint is NUMBNESS OF ENTIRELFT SIDE. Patient arrived via from ER. Monitor applied. Initial assessment completed. Vital signs taken and recorded. ANGELES BOOKER DO notified of admission to the unit. Orders received. See assessment for past medical history, medications and allergies. Patient and/or family oriented to unit. [facility] visitation policy reviewed. Clothing/patient valuable form completed. MIKAELA MITCHELL
--- NOTE | 2019-12-23 13:49 | NUR ---
DR. QUINTANILLA PAGED REGARDING CONSULT.
[2019-12-23] MEDS ORDERED: LEVETIRACETAM1000 M1 PO (14:31)
--- NOTE | 2019-12-23 14:55 | NUR ---
PHYSICAL THERAPY Pt just admitted from ED w L sided weakness w recent heart cath "a few days ago". Will follow pending consults and H&P by admitting physicians. Sujata Torres PT
--- NOTE | 2019-12-23 15:18 | NUR ---
Occupational therapy and nursing screen received. Will follow up with patient for completion of an OT evaluation. Thank you. Dina Hussein, OTR/L
[2019-12-23 16:00] VITALS: BP 138/69
[2019-12-23 20:00] VITALS: BP 135/84
--- NOTE | 2019-12-23 20:00 | NUR ---
RESTING IN BED; VOICES NO C/O PAIN OR DISCOMFORT AT THIS TIME. CALL LIGHT WITHIN REACH.
--- NOTE | 2019-12-23 22:00 | NUR ---
TOOK MEDS WITHOUT DIFFICULTY; DENIES PAIN. CALL LIGHT WITHIN REACH.
[2019-12-24] VITALS: BP 100/74
--- NOTE | 2019-12-24 04:00 | NUR ---
RESTING IN BED WITH EYES CLOSED; RESPIRATIONS EASY & UNLABORED. CALL LIGHT WITHIN REACH.
--- NOTE | 2019-12-24 07:20 | NUR ---
DR QUINTANILLA ON THE FLOOR AND STATES THAT PT IS FINE ON HIS PART TO BE CLEARED TO GO HOME THAT HE DID A HEART STENT PLACED 4 DAYS AGO AND IS TAKING THE CORRECT MEDICATIONS THAT HE NEEDS.
--- NOTE | 2019-12-24 07:33 | NUR ---
IN PT ROOM AT THIS TIME TO COMPLETE ASSESSMENT. PT STATES HE HAS NO COMPLAINTS AT THIS TIME AND IS READY TO BE RELEASED TO HOME. HE DENIES ANY CHEST PAIN OR SOB SINCE HE HAD A HEART STENT PLACED 3 DAYS AGO. CALL LIGHT WITHIN REACH, WILL CONTINUE TO MONITOR
[2019-12-24 08:00] VITALS: BP 114/70
--- NOTE | 2019-12-24 09:30 | NUR ---
Crop Production Advisor in to talk to patient. Patient states lives at home alone with his family checking in on him. There are 0 steps in the home. Physician: Dr. Roseline Abrams Pharmacy: [facility] Home health services: [facility] for 2 hours on /. Would like [facility] RN/PT. Patient's level of ADLs: INDEPENDENT Patient has working utilities: yes DME: none Follow-up physician's appointment after d/c: will be made by the hospitalist nurse director upon discharge Does patient want to access PORTAL?: no Discharge plan discussed with patient. He lives at home alone with his family checking in on him. He needs assistance with his ADLs and ambulates independently. Discussed home health care services and he currently has [facility] for 2 hours on Thursday, , and Thursday. He would like [facility] care services as he has had them in the past. He would like nursing and therapy. When medically stable he will be discharged to home with the resumption of his [facility] and new [facility]. He states either his neighbor will provide transportation on discharge or he will call a cab. JASWANT SEN
--- NOTE | 2019-12-24 10:10 | NUR ---
DR PALUMBO IN TO SEE PATIENT AND STATES THAT HE IS HAVING PAIN WHERE HIS INCISION IS AND WANTS TYLENOL. HE IS PUTTING IN THE DISCHARGE ORDER IN NOW
--- NOTE | 2019-12-24 10:44 | NUR ---
IN PT ROOM AT THIS TIME, TOOK OFF ECONOMIC DEVELOPMENT SPECIALIST AND TOOK IV OUT.
--- NOTE | 2019-12-24 10:56 | NUR ---
IN PT ROOM GOING OVER DISCHARGE INSTRUCTIONS, PT STATES HE HAS NO QUESTIONS AT THIS TIME. GATHERING ALL OF HIS BELONGINGS AT THIS TIME, WILL CALL CAB FOR RIDE
--- NOTE | 2019-12-24 11:07 | NUR ---
PT HAS ALL OF HIS BELONGINGS AND IS LEAVING THE FLOOR AT THIS TIME
--- NOTE | 2019-12-26 07:24 | NUR ---
Notified hospitalist nurse director of patient wishing to have [facility] RN/PT on discharge.
--- NOTE | 2019-12-26 08:26 | NUR ---
Faxed home health care order to [facility]
--- NOTE | 2019-12-26 09:58 | NUR ---
Spoke to Daria from [facility]. They are not able to take patient due to an insurance issue. The last admission the referral was then sent over to [facility] by [facility] who accepted the patient and Daria will fax the referral again to [facility].
== END 2019-12-24 11:07 | disposition home health service (06) ==
LOC: ED 10:11 → EDHOLD 12:31 → 4E 12:50
PROVIDERS: Internal Medicine; ADMIT Emergency Medicine
DX: R53.1 Weakness (principal); I10 Essential (primary) hypertension; I25.10 Atherosclerotic heart disease of native coronary artery without angina pectoris; G40.909 Epilepsy, unspecified, not intractable, without status epilepticus; K21.9 Gastro-esophageal reflux disease without esophagitis; R73.9 Hyperglycemia, unspecified

== ENCOUNTER 2020-01-13 21:48 | Emergency (ER) | payer MEDICAID ==
[~2020-01-13] VITALS: Ht 167.6 cm; Wt 79.4 kg
[~2020-01-13 21:48] MED LIST changes: +LEVETIRACETAM1000 M1 PO
[2020-01-13 22:14] LABS: BASO % 0.4 % (0.0-1.0); EOS # 0.1 10*3/uL (0.0-0.4); EOS % 2.4 % (1.0-4.0); HEMATOCRIT 39.1 % (42.0-52.0); LYMPH # 1.7 10*3/uL (1.3-4.4); LYMPH % 35.9 % (27.0-41.0); MEAN CELL VOLUME 86.5 fl (80.0-94.0); MEAN CORPUSCULAR HGB 27.2 pg (27.0-31.0); MEAN CORPUSCULAR HGB CONC 31.5 g/dl (33.0-37.0); MEAN PLATELET VOLUME 9.4 fl (9.6-12.3); MONO # 0.4 10*3/uL (0.1-1.0); MONO % 9.6 % (3.0-9.0); NEUT # 2.4 10*3/uL (2.3-7.9); NEUT % 51.3 % (47.0-73.0); PLATELET COUNT AUTOMATED 221 10*3/uL (130-400); RED BLOOD COUNT 4.52 10*6/uL (4.50-5.90); RED CELL DISTRI WIDTH 14.5 % (0-14.5); WHITE BLOOD COUNT 4.6 10*3/uL (4.8-10.8)
[2020-01-13 22:32] LABS: ALBUMIN 3.2 gm/dl (3.1-4.5); ALKALINE PHOSPHATASE 129 U/L (45-117); BUN 14 mg/dl (7-24); CHLORIDE 111 mmol/L (98-107); CREATININE 1.21 mg/dL (0.70-1.30); POTASSIUM 3.9 mmol/L (3.5-5.1); SGOT/AST 13 IU/L (3-35); SGPT/ALT 34 U/L (12-78); SODIUM 142 mmol/L (136-145); TOTAL PROTEIN 7.4 gm/dL (6.4-8.2)
[2020-01-13 22:35] LABS: ETHYL ALCOHOL < 3.0 mg/dl (<3); TROPONIN I < 0.015 ng/ml (<0.045)
[2020-01-13 23:44] LABS: BILIRUBIN NEGATIVE (NEGATIVE); CLARITY CLEAR (CLEAR); COLOR YELLOW (YELLOW); GLUCOSE NEGATIVE (NEGATIVE); KETONE NEGATIVE (NEGATIVE)
[2020-01-13 23:45] LABS: BLOOD NEGATIVE (NEGATIVE); LEUKO ESTERASE 1+ (NEGATIVE); NITRITE NEGATIVE (NEGATIVE); UROBILINOGEN 0.2 E.U./dl (0.2-1.0)
[2020-01-13 23:52] LABS: URINE AMPHETAMINES < 1000 (1000ng/ml); URINE BARBITURATES < 200 (200ng/ml); URINE BENZODIAZEPINES < 200 (200ng/ml); URINE CANNABINOIDS (THC) < 50 (50ng/ml); URINE COCAINE < 300 (300ng/ml); URINE METHADONE < 300 (300ng/ml); URINE OPIATES < 300 (300ng/ml)
[2020-01-13 23:54] LABS: BACTERIA 1+; MUCOUS 1+; WBC 21-30 wbc/hpf (0-5)
[2020-01-13 23:57] LABS: URINE PHENCYCLIDINE < 25 (25ng/ml)
== END 2020-01-14 00:35 | disposition home or self-care (01) ==
LOC: ED 21:48
PROVIDERS: Physician Assistant
DX: M75.52 Bursitis of left shoulder (principal); Z79.899 Other long term (current) drug therapy; Z79.82 Long term (current) use of aspirin

== ENCOUNTER 2020-12-14 16:04 | Emergency (ER) | payer MEDICAID ==
[~2020-12-14] VITALS: Wt 69.4 kg
[2020-12-14 17:08] LABS: BASO % 0.7 % (0.0-1.0); EOS # 0.1 10*3/uL (0.0-0.4); EOS % 1.5 % (1.0-4.0); HEMATOCRIT 44.9 % (42.0-52.0); LYMPH # 1.3 10*3/uL (1.3-4.4); LYMPH % 27.4 % (27.0-41.0); MEAN CELL VOLUME 86.7 fl (80.0-94.0); MEAN CORPUSCULAR HGB CONC 32.3 g/dl (33.0-37.0); MEAN PLATELET VOLUME 9.8 fl (9.6-12.3); MONO # 0.4 10*3/uL (0.1-1.0); MONO % 8.6 % (3.0-9.0); NEUT # 2.8 10*3/uL (2.3-7.9); NEUT % 61.6 % (47.0-73.0); PLATELET COUNT AUTOMATED 184 10*3/uL (130-400); RED BLOOD COUNT 5.18 10*6/uL (4.50-5.90); RED CELL DISTRI WIDTH 14.5 % (0-14.5); WHITE BLOOD COUNT 4.6 10*3/uL (4.8-10.8)
[2020-12-14 17:28] LABS: ALBUMIN 3.5 gm/dl (3.1-4.5); BUN 17 mg/dl (7-24); CHLORIDE 106 mmol/L (98-107); CREATININE 1.36 mg/dL (0.70-1.30); POTASSIUM 4.1 mmol/L (3.5-5.1); SGOT/AST 14 IU/L (3-35); SGPT/ALT 32 U/L (12-78); SODIUM 141 mmol/L (136-145)
[2020-12-14 17:32] LABS: ALKALINE PHOSPHATASE 129 U/L (45-117); TOTAL PROTEIN 7.7 gm/dL (6.4-8.2)
[2020-12-14 17:33] LABS: TROPONIN I < 0.015 ng/ml (<0.045)
[2020-12-14 18:08] LABS: BILIRUBIN Negative (Negative); BLOOD Negative (Negative); CLARITY Clear (Clear); COLOR Dark Yellow (Yellow); GLUCOSE Negative (Negative); KETONE Trace (Negative); LEUKO ESTERASE 1+ (Negative); NITRITE Negative (Negative); SPECIFIC GRAVITY >= 1.030 (1.001-1.030)
[2020-12-14 18:28] LABS: FINE GRANULAR CAST 0-2; HYALINE CAST 0-2; MUCOUS 1+
== END 2020-12-14 19:48 | disposition home or self-care (01) ==
LOC: ED 16:04
PROVIDERS: Physician Assistant
DX: R55 Syncope and collapse (principal); Z79.899 Other long term (current) drug therapy; Z79.82 Long term (current) use of aspirin; Z98.890 Other specified postprocedural states

== ENCOUNTER 2021-12-23 22:17 | Emergency (ER) | payer MEDICAID ==
[2021-12-24 00:46] LABS: BASO % 0.3 % (0.0-1.0); EOS # 0.1 10*3/uL (0.0-0.4); EOS % 1.1 % (1.0-4.0); HEMATOCRIT 37.2 % (42.0-52.0); LYMPH # 2.1 10*3/uL (1.3-4.4); MEAN CELL VOLUME 89.2 fl (80.0-94.0); MEAN CORPUSCULAR HGB 28.3 pg (27.0-31.0); MEAN CORPUSCULAR HGB CONC 31.7 g/dl (33.0-37.0); MEAN PLATELET VOLUME 10.1 fl (9.6-12.3); MONO # 0.5 10*3/uL (0.1-1.0); MONO % 6.4 % (3.0-9.0); NEUT # 4.6 10*3/uL (2.3-7.9); NEUT % 62.8 % (47.0-73.0); PLATELET COUNT AUTOMATED 269 10*3/uL (130-400); RED BLOOD COUNT 4.17 10*6/uL (4.50-5.90); RED CELL DISTRI WIDTH 14.6 % (0-14.5); WHITE BLOOD COUNT 7.4 10*3/uL (4.8-10.8)
[2021-12-24 01:02] LABS: CREATININE 1.53 mg/dL (0.70-1.30); POTASSIUM 3.7 mmol/L (3.5-5.1); TOTAL PROTEIN 6.9 gm/dL (6.4-8.2)
[2021-12-24] MEDS ORDERED: MELOXICAM15 MG PO (06:32)
[2021-12-24] MEDS ORDERED: LEVETIRACETAM500 MG PO (06:33)
[2021-12-24] MEDS ORDERED: OXCARBAZEPINE300 M1 PO (06:34)
== END 2021-12-24 08:44 | disposition short-term general hospital (02) ==
LOC: ED 22:17
PROVIDERS: Emergency Medicine
DX: S02.2XXA Fracture of nasal bones, initial encounter for closed fracture (principal); S02.40CA Maxillary fracture, right side, initial encounter for closed fracture; R56.9 Unspecified convulsions; Y08.89XA Assault by other specified means, initial encounter; Y93.89 Activity, other specified; Y92.89 Other specified places as the place of occurrence of the external cause; Y99.8 Other external cause status